=== PATIENT | female | born 1960 | race Caucasian/White ===

== ENCOUNTER 2025-05-20 17:11 | Observation (INO) ==
--- NOTE | 2025-05-20 17:37 | EKG ---
Test Reason : chest pain Blood Pressure : */* mmHG Vent. Rate : 86 BPM Atrial Rate : 86 BPM P-R Int : 148 ms QRS Dur : 82 ms QT Int : 378 ms P-R-T Axes : 35 100 80 degrees QTc Int : 452 ms Normal sinus rhythm Rightward axis Low voltage QRS Nonspecific ST abnormality Abnormal ECG When compared with ECG of 07-MAY-2025 14:02, No significant change was found Confirmed by Morgan Lucio MD ([id number]) on 05/21/2025 5:49:15 AM Referred By: Confirmed By: Morgan Lucio MD
[2025-05-20 17:41] LABS: ABG BASE EXCESS 3.9 mmol/L (-2.0-2.0); ABG OXYGEN SATURATION 86.0 % (90-100); ABG PCO2 54.0 mmHg (35.0-45.0); ABG PH 7.360 (7.35-7.45); ABG PO2 54.0 mmHg (80.0-100.0)
[2025-05-20 17:42] VITALS: BMI 42.5
[2025-05-20 17:42] LABS: ABG ALLEN TEST POS; ABG HCO3 30.5 mmol/L (22-26)
[2025-05-20 17:55] LABS: MEAN PLATELET VOLUME 9.3 fL (7.4-11.0); RED CELL DISTRIBUTION WIDTH 17.1 % (11.6-16.5)
[2025-05-20 18:01] LABS: INR 1.04 (0.8-1.3)
[2025-05-20 18:07] LABS: COR CA(FOR HYPOALB) 9.5 mg/dL (8.5-10.1); COR NA(FOR HYPERGLY) 138 mmol/L (136-145); CREATININE 1.03 mg/dL (0.55-1.02); eGFR NON BLACK RACES 57 (>60)
--- NOTE | 2025-05-20 18:14 | DR.CP ---
HPI Time Seen Time Seen by Provider: 05/20/25 18:11 PCP Primary Care Physician: SUSAN Nolan Complaint Chief Complaint Doctor Comments: Patient complains of chest pain onset today with shortness of breath last night. Patient is supposed to be on O2 but is having problems with her equipment. Patient also states that she fell last night striking the right side of her head does not know whether she lost consciousness or not. Chief Complaint:: pt states that she began to have chest pain today and SOB that started last night. she states that she wears home O2 but apparently something has been wrong with her tank, so she hasnt had oxygen since . she also had a fall last night and c/o of pain on the right side of her head and right foot, but she does not recall losing consciousness COVID-19 Coronavirus risk:travel/contact w/high risk person: No Has patient experienced Coronavirus symptoms: Yes Coronavirus symptoms experienced: Shortness of Breath Source History Provided: Patient Mode of Arrival Mode of Arrival: Ambulatory Timing Onset of Chief Complaint: 05/19/25 PMH PMH Past Medical History: Yes Past Medical History: CHF, COPD, Migraines and Hypertension Past Surgical History: Yes Surgical History: Hysterectomy, Ortho Surgery and Tonsillectomy Family History History of Family Medical Conditions: Yes Family Medical History: Cancer, [place] and Heart Failure Social History Does patient currently use any type of tobacco product: Yes Have you used tobacco products in the last 12 months: Yes Type of Tobacco Use: Cigarettes Alcohol Use: Rarely Do you use any recreational Drugs:: No Lives With: Family Lives Where: Home Travel Risk Coronavirus risk:travel/contact w/high risk person: No Has patient experienced Coronavirus symptoms: Yes Coronavirus symptoms experienced: Shortness of Breath Infectious screening Have you traveled outside the country in the last 6 months?: No Isolation: Standard ROS Review of Systems Constitutional: No Symptoms Reported Eyes: No Symptoms Reported ENTM: No Symptoms Reported Respiratoy: Short of Breath Cardiovascular: Chest Pain Gastrointestinal/Abdominal: No Symptoms Reported Genitourinary: No Symptoms Reported Neurological: See HPI and Other (Status post Fall possible LOC) Musculoskeletal: No Symptoms Reported Integumentary: No Symptoms Reported Hematologic/Lymphatic: No Symptoms Reported Endocrine: No Symptoms Reported Psychiatric: No Symptoms Reported All Other Systems: Reviewed and Negative PE Vitals Vitals: Vital Signs Temperature 97.8 F Pulse Rate 75 Pulse Rate 76 Pulse Rate 86 Pulse Rate 81 Pulse Rate 86 Pulse Rate 93 Pulse Rate 86 Pulse Rate 89 Respiratory Rate 17 Respiratory Rate 14 Respiratory Rate 21 Respiratory Rate 13 Respiratory Rate 20 Respiratory Rate 22 Respiratory Rate 37 Blood Pressure 145/71 O2 Sat by Pulse Oximetry 94 O2 Sat by Pulse Oximetry 94 O2 Sat by Pulse Oximetry 96 O2 Sat by Pulse Oximetry 97 O2 Sat by Pulse Oximetry 97 O2 Sat by Pulse Oximetry 91 O2 Sat by Pulse Oximetry 91 O2 Sat by Pulse Oximetry 91 General Limitations: No Limitations General Appearance: Alert and In No Apparent Distress Head Head Exam: Normal Inspection Eyes Eye exam: Normal Appearance ENT ENT Exam: Normal Exam Chest Chest Inspection: Normal Inspection Respiratory Respiratory Exam: Other (Diminished breath sounds) Cardiovascular Cardiovascular Exam: Regular Rate and Normal Rhythm Pulse: Normal Edema: Normal Abdominal Exam Abdominal Exam: Normal Inspection, Normal Bowel Sounds, Soft and Other (Morbidly obese) Extremities Extremities Exam: Normal Inspection Back Back Exam: Normal Inspection Neurologic Neurological Exam: Alert and Oriented X3 Psychiatric Psychiatric Exam: Normal Affect and Normal Mood Skin Skin Exam: Warm, Dry, Intact and Normal Color Other Exam Other Exam: Ecchymosis right plantarAspect of right foot COURSE Treatment Treatment: Discussed findings with patient wishes admission discussed with Dr. Chamberlain will admit Consultation Called: 18:40 Consultation Comments: Discussed case with Dr. Chamberlain will admit ROR Labs Reviewed Laboratory Results Reviewed?: Yes 05/20/25 17:40 05/20/25 17:40 Laboratory: WBC 8.8 X10^3/uL (3.6-10.0) 05/20/25 17:40 RBC 4.02 X10^6/uL (3.5-5.4) 05/20/25 17:40 Hgb 13.7 g/dL (12.0-16.0) 05/20/25 17:40 Hct 40.4 % (36.0-47.0) 05/20/25 17:40 MCV 100.6 fL (80.0-100.0) H 05/20/25 17:40 MCH 34.1 pg (27.0-34.0) H 05/20/25 17:40 MCHC 33.9 g/dL (33.0-35.0) 05/20/25 17:40 RDW 17.1 % (11.6-16.5) H 05/20/25 17:40 Plt Count 169 X10^3/uL (150.0-450.0) 05/20/25 17:40 Plt Count Comment Adequate (ADEQUATE) 05/20/25 17:40 MPV 9.3 fL (7.4-11.0) 05/20/25 17:40 Neut % (Auto) 92.8 % (42.0-75.0) H 05/20/25 17:40 Lymph % (Auto) 4.2 % (21.0-51.0) L 05/20/25 17:40 Borden % (Auto) 0.4 % (0.0-13.0) 05/20/25 17:40 Eos % (Auto) 0.1 % (0.9-2.9) L 05/20/25 17:40 Baso % (Auto) 2.5 % (0.2-1.0) H 05/20/25 17:40 Neut # (Auto) 8.2 x10^3/uL (2.2-4.8) H 05/20/25 17:40 Lymph # (Auto) 0.4 X10^3/uL (1.3-2.9) L 05/20/25 17:40 Borden # (Auto) 0 x10^3/uL (0.3-0.8) L 05/20/25 17:40 Eos # (Auto) 0.0 x10^3/uL (0.0-0.2) 05/20/25 17:40 Baso # (Auto) 0.2 X10^3/uL (0.0-0.1) H 05/20/25 17:40 Absolute Nucleated RBC 0.1 /100WBC 05/20/25 17:40 Total Counted 100 05/20/25 17:40 Neutrophils % (Manual) 95 % (39-76) H 05/20/25 17:40 Lymphocytes % (Manual) 5 % (13-43) L 05/20/25 17:40 Plt Morphology Comment Normal (NORMAL) 05/20/25 17:40 RBC Morphology Abnormal (NORMAL) A 05/20/25 17:40 Anisocytosis Slight A 05/20/25 17:40 Macrocytosis Slight A 05/20/25 17:40 Stomatocytes Present 05/20/25 17:40 PT 13.7 SECONDS (11.8-14.3) 05/20/25 17:40 INR Target Range - 05/20/25 17:40 INR 1.04 (0.8-1.3) 05/20/25 17:40 APTT 73.8 SECONDS (22.9-36.5) H 05/20/25 17:40 PTT Comment - 05/20/25 17:40 D-Dimer 1.10 ug/ml (0.0-0.57) H 05/20/25 17:40 Sample Site Lrad 05/20/25 17:38 ABG pH 7.360 (7.35-7.45) 05/20/25 17:38 ABG pCO2 54.0 mmHg (35.0-45.0) H* 05/20/25 17:38 ABG pO2 54.0 mmHg (80.0-100.0) L 05/20/25 17:38 ABG HCO3 30.5 mmol/L (22-26) H* 05/20/25 17:38 ABG O2 Saturation 86.0 % (90-100) L 05/20/25 17:38 ABG Base Excess 3.9 mmol/L (-2.0-2.0) H 05/20/25 17:38 Joshua Test Pos 05/20/25 17:38 A-a Gradient 28.0 mmHg 05/20/25 17:38 FiO2 21.0 05/20/25 17:38 Blood Gas Comments Alba well ms 05/20/25 17:38 Sodium 136 mmol/L (136-145) 05/20/25 17:40 Corrected Sodium 138 mmol/L (136-145) 05/20/25 17:40 Potassium 4.2 mmol/L (3.5-5.1) 05/20/25 17:40 Chloride 98 mmol/L (98-107) 05/20/25 17:40 Carbon Dioxide 31.7 mmol/L (21-32) 05/20/25 17:40 BUN 11 mg/dL (7-18) 05/20/25 17:40 Creatinine 1.03 mg/dL (0.55-1.02) H 05/20/25 17:40 Est GFR (MDRD) Af Amer > 60 (>60) 05/20/25 17:40 Est GFR (MDRD) Non-Af 57 (>60) L 05/20/25 17:40 Glucose 182 mg/dL (65-99) H 05/20/25 17:40 Lactic Acid 4.1 mmol/L (0.4-2.0) H* 05/20/25 17:40 Calcium 8.6 mg/dL (8.5-10.1) 05/20/25 17:40 Corrected Calcium 9.5 mg/dL (8.5-10.1) 05/20/25 17:40 Total Bilirubin 0.40 mg/dL (0.2-1.0) 05/20/25 17:40 AST 21 Units/L (15-37) 05/20/25 17:40 ALT 12 Units/L (12-78) 05/20/25 17:40 Alkaline Phosphatase 70 Units/L (46-116) 05/20/25 17:40 Creatine Kinase 97 Units/L (26-192) 05/20/25 17:40 Troponin I High Sens 12.6 ng/L (4.0-60.0) 05/20/25 17:40 B-Natriuretic Peptide 77.0 pg/mL (0-79) 05/20/25 17:40 Total Protein 8.1 g/dL (6.4-8.2) 05/20/25 17:40 Albumin 2.9 g/dL (3.4-5.0) L 05/20/25 17:40 Globulin 5.2 g/dL (2.5-4.5) H 05/20/25 17:40 Albumin/Globulin Ratio 0.6 Ratio (1.1-2.1) L 05/20/25 17:40 XRAY X-ray Results: [id number] 1960 Sex: F Location: ER Order Number(s): [id number] Procedure(s):CHEST, 1 VIEW X-RAY Ordering Physician: WILBER GRIMALDO Primary Care: OTTO PICHARDO Service Date: 11/12/24 Service Time: 1234 EXAM: Portable chest HISTORY: Hypoxia COMPARISON: 4 FINDINGS: Patient is rotated markedly to the right. There is a left-sided port present with its tip in the superior vena cava. Heart size is enlarged. Mild pulmonary venous congestion is present. No definite interstitial edema, alveolar edema, alveolar infiltrates or pleural effusions identified. Bony thorax is unremarkable. IMPRESSION: Cardiomegaly with pulmonary venous congestion No interstitial edema, alveolar edema, or alveolar infiltrates identified. THIS IS AN ELECTRONICALLY VERIFIED FINAL REPORT 11/13/2024 6:10 AM - Electronically signed by Magdiel Lacey MD Name: GURJIT DELGADILLO : 1960 Sex: F Location: ER Order Number(s): [id number] Procedure(s):HEAD (TRAUMA) CT Ordering Physician: Magdiel Olvera Primary Care: LAURENCE BATEMAN Service Date: 05/20/25 Service Time: 1731 EXAM: CT HEAD WITHOUT CONTRAST HISTORY: c/o of pain on the right side of her head and right foot, but she does not recall losing consciousness; COMPARISON: None. TECHNIQUE: Axial CT images were obtained through the brain without contrast. Coronal and sagittal reformations were performed. All CT scans at this facility use dose modulation, iterative reconstruction, and/or weight based dosing when appropriate to reduce radiation dose to as low as reasonably achievable. FINDINGS: BRAIN: No evidence for acute bleed. Rowe-white matter differentiation is preserved. Ventricles have normal size and contour. No shift of midline structures. Basilar cisterns are preserved. No cerebellar tonsillar ectopia. No evidence for acute calvarial findings. MASTOID AIR CELLS: Visualized mastoid air cells are well aerated. PARANASAL SINUSES: Visualized portions of the paranasal sinuses are well aerated. ORBITS: Bilateral intra-ocular lens implants otherwise globes are unremarkable. IMPRESSION: No evidence for acute intracranial pathology. EKG Rate: 86 [place]: RAD ST: Nonsp Opioid Opioid Risk Tool Age (Benson box if 16-45): No History of Preadolescent Sexual Abuse: No Total: 0 Total Score Risk Category: Low Risk Copyright: Jostin DIAZ predicting aberrant behaviors Discharge Plan Diagnosis Discharge Problem: Dyspnea, Altered mental status, Falls COPD (chronic obstructive pulmonary disease) Qualifiers: COPD type: unspecified COPD Qualified Code(s): J44.9 - Chronic obstructive pulmonary disease, unspecified Discharge Plan Patient Disposition: ADMITTED INPATIENT Condition: Stable Prescriptions: No Action clonazepam 1 mg tablet 1 mg PO TID PRN omeprazole 40 mg capsule,delayed release(DR/EC) 40 mg PO QDAY amitriptyline 25 mg tablet 25 mg PO QHS oxycodone-acetaminophen 10-325 mg tablet 10 tab PO TID ropinirole 0.5 mg tablet 0.5 mg PO QHS gabapentin 300 mg capsule 300 mg PO QID furosemide 20 mg tablet 20 mg PO QDAY PRN zolpidem 10 mg tablet 10 mg PO QHS prednisone 20 mg Tablet 40 mg PO QDAY Qty: 5 0RF levofloxacin 500 mg Tablet 500 mg PO QDAY Qty: 5 0RF Health Concerns: Post Hospitalization: new medications and changes needed to prevent readmission or further decline. Pt educated and given instructions on all concerns. Plan of Treatment: Continue with present treatment and follow up plan. Pt is to keep follow up appointment as instructed and take medications as ordered. Orders to Discharge Patient Discharge Orders: Transfer (Routine); Ordered 05/20/25 Ordered By: Magdiel Olvera Follow ups/Referrals Follow ups/Referrals: LAURENCE BATEMAN [Primary Care Provider, Unknown] - 3 days Instructions Stand Alone Forms: Find Help Web Site, Post Hospital Follow Up Care Print Language: DIVEHI
[2025-05-20 18:25] LABS: PLATELET MORPHOLOGY COMMENT NORMAL (NORMAL)
[2025-05-20 19:11] LABS: BLOOD/HEMOGLOBIN,URINE 2+ (NEGATIVE); LEUKOCYTE ESTERASE ,URINE NEGATIVE (NEGATIVE); NITRITES,URINE NEGATIVE (NEGATIVE)
[2025-05-20 19:12] LABS: APPEARANCE,URINE SLIGHTLY HAZY (CLEAR)
[2025-05-20] MEDS: LEVAQUIN PREMIX IV 750 MG 750 MG/150 ML BAG IV SCH (19:16)
[2025-05-20] MEDS: NS 1,000 ML IV 1,000 ML IV ONE (19:16)
[2025-05-20] MEDS: PERCOCET TAB 5/325 MG PO ONE (19:17)
[2025-05-20] MEDS: ZOFRAN INJ 4 MG VIAL IVP ONE (19:17)
[2025-05-20 19:18] LABS: SQUAMOUS EPITHELIAL CELL,UR RARE /HPF (NEGATIVE)
[2025-05-20] MEDS ORDERED: ULTRAM PO PRN (20:23)
[2025-05-20] MEDS ORDERED: NORCO 5/325 MG TAB PO PRN (20:23)
[2025-05-20] MEDS ORDERED: TYLENOL 325 MG TAB PO PRN (20:23)
[2025-05-20] MEDS ORDERED: CONSULT PHARMACY - POTASSIUM & MAGNESIUM XX SCH (20:23)
[2025-05-20] MEDS ORDERED: LEVAQUIN PREMIX IV 750 MG 750 MG/150 ML BAG IV SCH (21:00)
[2025-05-20] MEDS: ELAVIL PO SCH (21:17)
[2025-05-20] MEDS: AMBIEN PO SCH (21:17)
[2025-05-20] MEDS: NEURONTIN CAP 300 MG PO SCH (21:17)
[2025-05-20] MEDS: REQUIP PO SCH (21:17)
[2025-05-20] MEDS: KLONOPIN TAB 1 MG PO ONE (21:58)
[2025-05-21] MEDS: PERCOCET TAB 5/325 MG PO PRN (00:24)
[2025-05-21 05:53] LABS: MEAN PLATELET VOLUME 9.1 fL (7.4-11.0); RED CELL DISTRIBUTION WIDTH 16.8 % (11.6-16.5)
[2025-05-21 06:05] LABS: COR CA(FOR HYPOALB) 10.0 mg/dL (8.5-10.1); CREATININE 0.84 mg/dL (0.55-1.02); eGFR NON BLACK RACES > 60 (>60)
--- NOTE | 2025-05-21 07:02 | RAD ---
EXAM: Portable chest HISTORY: Headache COMPARISON: 05/08/20 25 FINDINGS: There is a port present on the left. Its tip is in the expected position of the superior vena cava. Heart is enlarged. Mild pulmonary venous congestion is present. No interstitial edema, alveolar edema, alveolar infiltrates or areas of consolidation identified. No pneumothorax or pleural effusion identified. Bony thorax is unremarkable. IMPRESSION: Cardiomegaly with pulmonary venous congestion No acute infiltrates THIS IS AN ELECTRONICALLY VERIFIED FINAL REPORT 05/21/2025 6:58 AM - Electronically signed by Magdiel Lacey MD
--- NOTE | 2025-05-21 07:10 | RAD ---
EXAM: FOOT, RIGHT HISTORY: c/o of pain on the right side of her head and right foot, but she does not recall losing consciousness; COMPARISON: None. TECHNIQUE: Three views FINDINGS: Films are overpenetrated. The toes are flexed at the PIP joints. Hallux valgus. Displaced posttraumatic closed comminuted fracture through the distal shaft of the 5th metatarsal. No other fracture or dislocation. Osteoarthritic changes along the 1st MTP joint, interphalangeal joint of the great toe and D IP joints of the toes. No osteolytic or osteoblastic lesions or radiopaque foreign body. Soft tissue swelling. Plantar spur. IMPRESSION: Displaced posttraumatic closed fracture through the distal shaft of the 5th metatarsal. THIS IS AN ELECTRONICALLY VERIFIED FINAL REPORT 05/21/2025 7:07 AM - Electronically signed by Jitendra Carlos MD
[2025-05-21] MEDS: LASIX PO SCH (08:06)
[2025-05-21] MEDS ORDERED: PHENERGAN TAB 25 MG PO PRN (09:54)
[2025-05-21] MEDS: PREDNISONE TAB 10 MG PO SCH (10:55)
[2025-05-21] MEDS: LOVENOX INJ 40 MG SYR SC SCH (10:56)
[2025-05-21] MEDS: KLONOPIN TAB 1 MG PO PRN (10:56)
[2025-05-21] MEDS: DIFLUCAN PO SCH (10:56)
[2025-05-21] MEDS ORDERED: PHARMACY CONSULT XX SCH (11:00)
--- NOTE | 2025-05-21 11:20 | MD.NOTE ---
Provider Note Note Note: Reviewed patients imaging, nondisplaced fifth metatarsal fracture of the right foot is nonoperative Will evaluate patient tomorrow 05/22/25 Patient will require a surgical shoe Please contact me with any questions! Dr. Danielle Goodwin
[2025-05-21] MEDS: BENADRYL INJ 50 MG VIAL IVP NR ×2 (12:12→19:42)
[2025-05-21] MEDS: PHENERGAN INJ 25 MG IM NR ×2 (12:13→19:42)
[2025-05-21] MEDS: PATIENT'S HOME MEDICATION (Fluticasone-Umeclidin-Vilanter [Trelegy Ellipta] 200-62.5-25 mc IN SCH (13:21)
[2025-05-21] MEDS: PATIENT'S HOME MEDICATION IV NR (13:39)
[2025-05-21] MEDS: LEVAQUIN PREMIX IV 750 MG 750 MG/150 ML BAG IV SCH (21:17)
[2025-05-22] MEDS: LEVAQUIN PREMIX IV 750 MG 750 MG/150 ML BAG IV ONE (03:03)
[2025-05-22] MEDS: ZOFRAN INJ 4 MG VIAL ONE (03:04)
[2025-05-22] MEDS: PERCOCET TAB 5/325 MG ONE (03:04)
[2025-05-22 06:12] LABS: MEAN PLATELET VOLUME 9.4 fL (7.4-11.0); RED CELL DISTRIBUTION WIDTH 16.9 % (11.6-16.5)
[2025-05-22 06:29] LABS: COR CA(FOR HYPOALB) 10.1 mg/dL (8.5-10.1); COR NA(FOR HYPERGLY) 141 mmol/L (136-145); CREATININE 1.06 mg/dL (0.55-1.02); eGFR NON BLACK RACES 55 (>60)
[2025-05-22] MEDS: BENADRYL INJ 50 MG VIAL IVP NR (13:49)
[2025-05-22] MEDS: PHENERGAN INJ 25 MG IM NR ×2 (13:50→18:06)
[2025-05-22] MEDS: PATIENT'S HOME MEDICATION IV NR (14:20)
[2025-05-22 14:55] VITALS: RESP 18
--- NOTE | 2025-05-22 17:11 | DR.CONSULT ---
CONSULT Consultation for Day of: Date: 05/22/25 Chief Complaint Chief Complaint: Chest pain and SOB Right foot pain and right side of her head pain after a fall Allergies Allergies Allergy/AdvReac Type Severity Reaction Status Date / Time pregabalin (From Lyrica) Allergy Verified 05/07/25 14:12 History of Present Illness History of Present Illness: Ms. Cardenas is a 65 y/o female who presented to the ED two days ago with a chief complaint of chest pain, shortness of breath and states that she had a recent fall where she experienced right head pain and foot pain. Patient states she has been walking on her foot, has some pain to the dorsal foot. She states that she has a cam boot at home from a previous injury. Patient denies any calf pain, denies ankle or proximal leg pain at this time. Her pain is localized to the lateral aspect of her right foot. Past Medical History Past Medical History: CHF, COPD, Migraines and Hypertension Past Surgical History Surgical History: Hysterectomy, Ortho Surgery and Tonsillectomy Family History Family Medical History: Cancer, [place] and Heart Failure Social History Does patient currently use any type of tobacco product: Yes Have you used tobacco products in the last 12 months: Yes Type of Tobacco Use: Cigarettes Alcohol Use: None Drug Use: None Medications Home Medications: pregabalin (From Lyrica) Allergy (Verified 05/07/25 14:12) CONTINUE taking the following medications baclofen 10 mg tablet 10 mg PO BID PRN muscle spasm 05/20/25 [History] fluticasone fur. 200 mcg-umeclid 62.5 mcg-vilant 25 mcg inhalat.powder (Trelegy Ellipta) 1 ea inhalation QDAY 05/20/25 [History] promethazine 25 mg tablet 25 mg PO Q12H PRN 05/20/25 [History] New Prescriptions fluconazole 200 mg tablet 200 mg PO DAILY #14 tabs 05/22/25 [Rx] levofloxacin 750 mg tablet 750 mg PO Q24H #5 tabs 05/22/25 [Rx] prednisone 5 mg tablet 10 mg (2 x 5 mg) PO DAILY #15 tabs 05/22/25 [Rx] Physical Exam Vital Signs: Vital Signs Temperature 98.0 F Pulse Rate [Right] 51 Respiratory Rate 20 Respiratory Rate 18 Blood Pressure [Left Arm] 134/63 O2 Sat by Pulse Oximetry 94 To the dorsal lateral aspect of right foot, a significant ecchymosis is appreciated spanning the lateral border and extending to the dorsal aspect over the metatarsal head region. Swelling is appreciated to the right foot with pain and tenderness noted to the distal fifth metatarsal head/shaft. No tenderness is noted to the proximal portion of the fifth metatarsal head. Patient is able to move her digits but is guarded due to pain. CFT < 3 sec to the digits of the right foot. DP is palpable to right foot. No open wounds or blisters are noted. No signs of infection are appreciated to either foot. Plan (1) Closed fracture of fifth metatarsal bone: Status: Acute Narrative Support Text: - No surgical intervention required at this time - Patient can WBAT in a surgical shoe, she states she has a CAM boot, did discuss that she can wear that as well - Patient was told to follow up in our office in 4 weeks to examine her foot and to observe for bone growth with the fracture site - Patient knows to contact our office if she needs to be seen sooner Please contact with any questions!
[2025-05-22 17:19] VITALS: BP 149/74; PULSE 86; TEMP 97.2; O2SAT 90
== END 2025-05-22 18:30 | disposition home health service (06) ==
LOC: MED/SURG 17:11 → ER 17:11 → MED/SURG 20:09
PROVIDERS: ADMIT Obstetrics & Gynecology Obstetrics; ATTEND Obstetrics & Gynecology Obstetrics
DX: W18.39XA Other fall on same level, initial encounter; E27.49 Other adrenocortical insufficiency; G61.81 Chronic inflammatory demyelinating polyneuritis; J44.9 Chronic obstructive pulmonary disease, unspecified; R94.31 Abnormal electrocardiogram [ECG] [EKG]; R41.82 Altered mental status, unspecified; R79.1 Abnormal coagulation profile; I10 Essential (primary) hypertension; Z86.19 Personal history of other infectious and parasitic diseases; R51.9 Headache, unspecified; R06.02 Shortness of breath; R06.09 Other forms of dyspnea; Z86.69 Personal history of other diseases of the nervous system and sense organs; S92.351A Displaced fracture of fifth metatarsal bone, right foot, initial encounter for closed fracture; R79.89 Other specified abnormal findings of blood chemistry; R13.11 Dysphagia, oral phase; M79.671 Pain in right foot; Z99.81 Dependence on supplemental oxygen; R07.89 Other chest pain